=== PATIENT | male | born 1960 | race Caucasian/White ===

== ENCOUNTER 2018-08-07 13:14 | Emergency (ER) | payer OTHER ==
[~2018-08-07] VITALS: Ht 175.3 cm; Wt 66.9 kg
[2018-08-07 13:21] VITALS: BP 115/71; PULSE 99; RESP 20; Ht 175.3 cm; Wt 66.9 kg
[2018-08-07] MEDS ORDERED: ALBUTEROL 0.083% (NEB) 2.5 MG/3 ML AMP HHN STA (14:23)
[2018-08-07] MEDS ORDERED: ALBU8.5H8 INH (14:27)
[2018-08-07] MEDS ORDERED: AZIT250T PO (14:27)
[2018-08-07] MEDS ORDERED: PRED20TA PO (14:27)
[2018-08-07] MEDS ORDERED: IPRATROPIUM (NEB) 0.5 MG/2.5 ML AMP HHN ONE (14:30)
[2018-08-07] MEDS ORDERED: DEXAMETHASONE 10 MG/ML 1 ML INJ IM ONE (14:30)
--- NOTE | 2018-08-08 07:24 | ERD ---
ER Documentation Chief Complaint Chief Complaint cough x 1 week, hx of bronchitis, has yellow phlegm, not in resp distress HPI 58-year-old male presenting with cough times 1 week. Patient has a history of bronchitis that turns into pneumonia. Patient has had no fevers. He describes a productive cough. He states his been going on for the last month. Denies any other medical problems. NKDA. Surgical history is dental implants. Social h istory marijuana use daily. ROS All systems reviewed and are negative except as per history of present illness. Medications Home Meds Active Scripts Azithromycin* (Zithromax*) 250 Mg Tablet, 250 MG PO .ZPACK DIRECTED, #6 TAB TAKE 500 MG (2 TABS) THE FIRST DAY THEN 250 MG (1 TAB) DAYS 2-5 Prov:SILVER KIM PA-C 08/07/18 Prednisone* (Prednisone*) 20 Mg Tab, 40 MG PO DAILY for 4 Days, TAB Prov:SILVER KIM PA-C 08/07/18 Albuterol Sulfate* (Proair HFA*) 8.5 Gm Hfa.aer.ad, 2 PUFF INH Q4, #1 INHALER Prov:SILVER KIM PA-C 08/07/18 Allergies Allergies: Coded Allergies: No Known Allergy (Unverified , 08/07/18) PMhx/Soc Hx Respiratory Disorders: Yes (BRONCHITIS, ASTHMA) Hx Alcohol Use: No Hx Substance Use: Yes Hx Tobacco Use: No Smoking Status: Current every day smoker FmHx Family History: No diabetes, No coronary disease, No other Physical Exam Vitals Vital Signs Date Temp Pulse Resp B/P (MAP) Pulse Ox O2 O2 Flow FiO2 Time Delivery Rate 08/07/18 86 20 97 21 14:55 08/07/18 99.4 99 20 115/71 96 13:21 (86) Physical Exam GENERAL: The patient is well-appearing, well-nourished, in no acute distress HEENT: Atraumatic. Conjunctivae are pink. Pupils equal, round, and reactive to light. There is no scleral icterus. Tympanic membranes clear bilaterally. Oropharynx clear. NECK: C-spine is soft and supple. There is no meningismus. There is no cervical lymphadenopathy. CHEST: Wheezing heard on auscultation. No focal rhonchi. No retractions. HEART: Regular rate and rhythm. No murmurs, clicks, rubs or gallops. Results 24 hrs Current Medications Medications Dose Sig/Irma Start Time Status Last (Trade) Ordered Route PRN Stop Time Admin Dose Reason Admin Albuterol 5 mg ONCE STAT 08/07/18 DC 08/07/18 (Proventil HHN 14:23 14:54 0.083% (Neb)) 08/07/18 14:24 Ipratropium 0.5 mg ONCE ONCE 08/07/18 DC 08/07/18 [place] HHN 14:30 14:54 (Atrovent 08/07/18 14:31 0.02% (Neb)) 10 mg ONCE ONCE 08/07/18 DC 08/07/18 Dexamethasone IM 14:30 15:08 (Decadron) 08/07/18 14:31 Procedures/MDM ER course: Albuterol Atrovent breathing treatment given ED. Decadron given in ED. MDM: 58-year-old male presenting with cough. I have low suspicion for pneumonia. Patient will be treated with antibiotic and this is been going on for a month however he likely has reactive airway disease. Patient will also be discharged with supportive medications and steroids. Patient is told symptoms change or worsen to return immediately to the ER. All questions answered at discharge Departure Diagnosis: Primary Impression: Cough Condition: Stable Patient Instructions: Cough, Chronic, Uncertain Cause, (Adult) Referrals: COMMUNITY CLINICS YOU HAVE RECEIVED A MEDICAL SCREENING EXAM AND THE RESULTS INDICATE THAT YOU DO NOT HAVE A CONDITION THAT REQUIRES URGENT TREATMENT IN THE EMERGENCY DEPARTMENT. FURTHER EVALUATION AND TREATMENT OF YOUR CONDITION CAN WAIT UNTIL YOU ARE SEEN IN YOUR DOCTORS OFFICE WITHIN THE NEXT 1-2 DAYS. IT IS YOUR RESPONSIBILITY TO M ANÍBAL AN APPOINTMENT FOR FOLOW-UP CARE. IF YOU HAVE A PRIMARY DOCTOR --you should call your primary doctor and schedule an appointment IF YOU DO NOT HAVE A PRIMARY DOCTOR YOU CAN CALL OUR PHYSICIAN REFERRAL HOTLINE AT IF YOU CAN NOT AFFORD TO SEE A PHYSICIAN YOU CAN CHOSE FROM THE FOLLOWING [facility] [address] [facility]. [facility] [address] [facility] [place] [address] [facility] [address] [facility]. [facility] [address] [facility]. [facility] [address] Additional Instructions: FOLLOW UP WITH YOUR PRIMARY CARE PHYSICIAN TOMORROW.Return to this facility if you are not improving as expected. SILVER KIM PA-C Aug 08, 2018 07:22
== END 2018-08-07 15:45 | disposition home or self-care (01) ==
LOC: FTE 13:14
DX: R05 Cough (principal); J45.909 Unspecified asthma, uncomplicated; F17.210 Nicotine dependence, cigarettes, uncomplicated
CPT/HCPCS: 94664; 96372; 99284; J1100

== ENCOUNTER 2018-08-07 22:56 | Emergency (ER) | payer OTHER ==
[~2018-08-07] VITALS: Ht 172.7 cm; Wt 67.6 kg
[~2018-08-07 22:56] MED LIST: ALBU8.5H8 INH; AZIT250T PO; PRED20TA PO
[2018-08-07 23:23] VITALS: BP 133/86; PULSE 91; RESP 18; Ht 172.7 cm; Wt 67.6 kg
[2018-08-08] MEDS ORDERED: AZITHROMYCIN 250 MG TAB PO ONE ×5 (04:30)
--- NOTE | 2018-08-08 04:58 | ERD ---
ER Documentation Chief Complaint Chief Complaint states was here earlier today, needs med refill HPI 58-year-old male states that he was here today and received a prescription for azithromycin, prednisone, and albuterol, but he states that since he is homeless he is not able to get the prescriptions filled at a pharmacy and he wants us to give him the medication here. Denies any new complaints or worsening symptoms. ROS All systems reviewed and are negative except as per history of present illness. Medications Home Meds Active Scripts Azithromycin* (Zithromax*) 250 Mg Tablet, 250 MG PO .ZPACK DIRECTED, #6 TAB TAKE 500 MG (2 TABS) THE FIRST DAY THEN 250 MG (1 TAB) DAYS 2-5 Prov:SILVER KIM PA-C 08/07/18 Prednisone* (Prednisone*) 20 Mg Tab, 40 MG PO DAILY for 4 Days, TAB Prov:SILVER KIM PA-C 08/07/18 Albuterol Sulfate* (Proair HFA*) 8.5 Gm Hfa.aer.ad, 2 PUFF INH Q4, #1 INHALER Prov:SILVER KIM PA-C 08/07/18 Allergies Allergies: Coded Allergies: No Known Allergy (Unverified , 08/07/18) PMhx/Soc History of Surgery: No Anesthesia Reaction: No Hx Neurological Disorder: Yes (Spinal Concussion) Hx Respiratory Disorders: Yes (Asthma) Hx Cardiac Disorders: No Hx Psychiatric Problems: No Hx Miscellaneous Medical Probl: No Hx Alcohol Use: No Hx Substance Use: Yes (Cannabis) Hx Tobacco Use: No Smoking Status: Unknown if ever smoked FmHx Family History: No diabetes, No coronary disease, No other Physical Exam Vitals Vital Signs Date Temp Pulse Resp B/P (MAP) Pulse Ox O2 O2 Flow FiO2 Time Delivery Rate 08/07/18 98.2 91 18 133/86 98 23:23 (102) Physical Exam Const: No acute distress Head: Atraumatic Eyes: Normal Conjunctiva ENT: Normal External Ears, Nose and Mouth. Neck: Full range of motion. No meningismus. Resp: Clear to auscultation bilaterally Cardio: Regular rate and rhythm, no murmurs Abd: Soft, non tender, non distended. Normal bowel sounds Skin: No petechiae or rashes Back: No midline or flank tenderness Ext: No cyanosis, or edema Neur: Awake and alert Psych: Normal Mood and Affect Results 24 hrs Current Medications Medications Dose Sig/Irma Start Time Status Last (Trade) Ordered Route PRN Stop Time Admin Dose Reason Admin 500 mg ONCE ONCE 08/08/18 DC 08/08/18 Azithromycin PO 04:30 04:29 (Zithromax) 08/08/18 04:31 250 mg ONCE ONCE 08/08/18 DC 08/08/18 Azithromycin PO 04:30 04:30 (Zithromax) 08/08/18 04:31 Albuterol 2 puff Q4H RESP 08/08/18 DC 08/08/18 (Ventolin THERAPY INH 05:00 04:28 Hfa) 08/08/18 05:30 250 mg ONCE ONCE 08/08/18 DC 08/08/18 Azithromycin PO 04:30 04:29 (Zithromax) 08/08/18 04:31 250 mg ONCE ONCE 08/08/18 DC 08/08/18 Azithromycin PO 04:30 04:29 (Zithromax) 08/08/18 04:31 250 mg ONCE ONCE 08/08/18 DC 08/08/18 Azithromycin PO 04:30 04:29 (Zithromax) 08/08/18 04:31 Procedures/MDM 58-year-old male states that he was here today and received a prescription for azithromycin, prednisone, and albuterol, but he states that since he is homeless he is not able to get the prescriptions filled at a pharmacy and he wants us to give him the medication here. Denies any new complaints or worsening symptoms. Patient is already seen by a provider earlier, I felt that it was appropriate to just provide the patient with his request which was for medication that were prescribed to him. Patient given a Ventolin inhaler in the ER as well as 500 mg azithromycin. In addition patient given 4 pills of 250 mg azithromycin and told to take one for the next 4 days. I have low suspicion for tuberculosis, meningitis, pneumothorax, PE, aspirated foreign body, respiratory distress, acute heart failure or other life threatening etiology based on patient history and exam findings. Patient advised to rest and stay well hydrated. Patient discharged with strict ER precautions. Patient advised to follow up with PMD. All questions answered at discharge. Departure Diagnosis: Primary Impression: Encounter for medication refill Condition: JOSEPH Aguilar 14, 2019 04:58
[2018-08-08] MEDS ORDERED: ALBUTEROL HFA 8 GM INHALER INH SCH (05:00)
== END 2018-08-08 05:30 | disposition home or self-care (01) ==
LOC: FTE 22:56
DX: Z76.0 Encounter for issue of repeat prescription (principal); J45.901 Unspecified asthma with (acute) exacerbation

== ENCOUNTER 2018-11-14 16:07 | Emergency (ER) | payer OTHER ==
[~2018-11-14] VITALS: Ht 172.7 cm; Wt 62.0 kg
[2018-11-14 16:34] VITALS: Ht 172.7 cm; Wt 62.0 kg
[2018-11-14] MEDS ORDERED: ONDANSETRON 4 MG INJ IV STA (17:26)
[2018-11-14] MEDS ORDERED: morphine 4 MG/ML VIAL IV STA (17:26)
[2018-11-14] MEDS ORDERED: SOD CHLORIDE 0.9% 1,000 ML IV STA (17:26)
[2018-11-14] MEDS ORDERED: MECLIZINE 12.5 MG TAB PO ONE (17:30)
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
[2018-11-14 22:35] VITALS: BP 139/81; PULSE 81; RESP 20
[2018-11-14] MEDS ORDERED: ACETAMINOPHEN 500 MG TAB PO ONE (23:00)
[2018-11-14] MEDS ORDERED: DIPHTH/TET/ACEL PERTUSS (ADULT) 0.5 ML VIAL IM* ONE (23:00)
== END 2018-11-15 00:16 | disposition left against medical advice (07) ==
LOC: E/R 16:07
DX: S01.111A Laceration without foreign body of right eyelid and periocular area, initial encounter (principal); J45.909 Unspecified asthma, uncomplicated; Y04.2XXA Assault by strike against or bumped into by another person, initial encounter
CPT/HCPCS: 12011; 70450; 70486; 99284; J7030